=== PATIENT | female | born 1995 | race Caucasian/White ===

== ENCOUNTER 2017-04-27 18:46 | Inpatient (IN) | payer OTHER ==
[~2017-04-27] VITALS: Ht 161.9 cm; Wt 87.5 kg
[2017-04-27] MEDS ORDERED: Oxytocin 30 Units/500 mL LR 30 UNITS in IV Premix 1 EACH IV PRN (19:30)
[2017-04-27] MEDS ORDERED: fentaNYL-PF 50 mCg/mL 2 mL Inj IVPUSH PRN (19:30)
[2017-04-27] MEDS ORDERED: Oxytocin 10 Unit/mL Inj IM PRN (19:30)
[2017-04-27] MEDS ORDERED: Sodium Chloride LOK Flush 10 mL Syringe IVFLUSH PRN (19:30)
[2017-04-27] MEDS ORDERED: Methylergonovine 0.2 mg/mL Inj IM PRN (19:30)
[2017-04-27] MEDS ORDERED: Hemorrhage Kit, Post Partum XX ONE (19:30)
[2017-04-27] MEDS ORDERED: Carboprost 250 mCg/mL Inj IM PRN (19:30)
[2017-04-27 19:55] LABS: Mean Corpuscular Hemoglobin 29.2 pg (27.0-35.0); Mean Corpuscular Volume 89.6 fL (81-100)
[2017-04-27] MEDS: Lactated Ringer's 1,000 ML IV PRN (22:22)
[2017-04-28] MEDS ORDERED: fentaNYL 2 mCg/mL-Bupivicaine 0.125% 100 mL Premix EPIDURAL ONE (10:31)
[2017-04-28] MEDS: Lactated Ringer's 1,000 ML IV PRN (14:32)
[2017-04-28] MEDS ORDERED: Carboprost 250 mCg/mL Inj IM PRN (19:10)
[2017-04-28] MEDS ORDERED: Oxytocin 30 Units/500 mL LR 30 UNITS in IV Premix 1 EACH IV PRN (19:10)
[2017-04-28] MEDS ORDERED: Witch Hazel-Glycerin Pads TOPICAL PRN (19:10)
[2017-04-28] MEDS ORDERED: Benzocaine (Dermoplast) 20% 60 Gm Spray TOPICAL PRN (19:10)
[2017-04-28] MEDS ORDERED: LANOlin HPA 7 Gm Ointment TOPICAL PRN (19:10)
[2017-04-28] MEDS ORDERED: Oxytocin 10 Unit/mL Inj IM PRN (19:10)
[2017-04-28] MEDS ORDERED: Hemorrhage Kit, Post Partum XX ONE (19:10)
[2017-04-28] MEDS ORDERED: Methylergonovine 0.2 mg/mL Inj IM PRN (19:10)
[2017-04-28] MEDS ORDERED: oxyCODONE-Acetamin 5-325 mg Tablet PO PRN (19:10)
[2017-04-28] MEDS ORDERED: Lactated Ringer's 1,000 ML IV SCH (19:10)
--- NOTE | 2017-04-28 20:00 | PROCED ---
[address] [address] PROCEDURE NOTE PATIENT: AGUSTIN ADAM : 1995 MR#: [id number] ADMIT: 04/27/2017 JOB ID: [id number] DATE OF SERVICE: 04/28/2017 at 6:13 P.M () POSTOPERATIVE DIAGNOSIS(ES): PREOPERATIVE DIAGNOSIS(ES): SURGEON: DELIVERY NOTE: This 21-year-old, G1, P0 female at 39 weeks and 4 days estimated gestational age, delivered am infant girl, weighing 8 pounds, 13 ounces by vacuum-assisted delivery. The patient presented last night, after michael throughout the day. She was 3-4 cm at about 11 p.m. Her membranes were intact and she was michael every 1-3 minutes. She was significantly uncomfortable and she had a reactive and reassuring strip. She progressed on her own throughout the night to 5 cm by 3:00 a.m., and by 8:30 when I checked her, she was 6 cm. Her membranes were intact and so I ruptured them artificially and clear fluid resulted. The tracing appeared reactive and reassuring throughout. She continued to progress, and at around 9 cm, received an epidural. This was effective. She was complete and pushing by 2:45 p.m. She continued to push effectively and bring the baby's head down from -2 station to +2 station. She had been pushing for four hours by the time I reassessed her at the end of the day and she was running out of energy. Her tracing was still excellent. She had no fevers. In conjunction with the patient, a decision was made to apply the vacuum at a time when baby had reserve and the patient had reserve to help me with her pushing. The vacuum was applied, being careful to avoid the cervix as well as the fontanelle. The effect of this was immediate with the 1st pull bringing the head to +1 station and the second set of pulls bringing the baby to . I removed the vacuum at that point and let the patient deliver the head on her own. The head was noted to be right occiput anterior. The infant, at this point, was noted to have a tight fit with her shoulders. The usual maneuvers, including bringing her legs back, applying suprapubic pressure and cutting episiotomy were done. A total of a 2-minute shoulder dystocia was finally resolved when I reached in and pulled the posterior arm forward. I felt a pop. I assumed that this was a potential fracture of the clavicle. Evidence afterwards was not profound to this extent, but potential x-rays could delineate this. The was noted to have relatively less movement on the right after delivery, but of note is that the was immediately noted to have poor tone. For this reason, I cut the cord immediately and the inpatient Peds team which had been called during the shoulder dystocia took over care. Positive pressure ventilation resulted in an excellent cry and improved tone on this . Apgars initially were 7 and later were 9. The cord gases were sent for analysis. Cord blood was sent for analysis as well. The placenta delivered approximately 7 minutes later spontaneously and intact with a three-vessel cord. The patient had a normal amount of bleeding at 300 cc of blood loss. She was given Pitocin through the IV because this was already running. On the other hand, the IV was infiltrated and so an additional 10 IM was given. Her uterus was found to be firm. The repair was carried out after a third-degree laceration was noted. This started with four [id number] sutures into the rectal capsule using 2-0 Vicryl suture. Once good tone had been obtained, the second-degree repair was done in the usual fashion using 3-0 Vicryl. Ten cc of 1% lidocaine was used in addition to her epidural for anesthesia. The patient tolerated this well. Following the procedure, rectal tone was tested again and found to be intact. The plan was to continue pain meds and Colace in an effort to make the patient more comfortable and assist with stooling. The patient's uterus was found to be firm. Her cervix was intact, and the mucosa of her rectum was intact. There were no other complications of this procedure and counts were correct x2. The patient was in excellent condition following the procedure and in-and-out catheter procedure was done to help with immediate drainage given her epidural and the trauma of delivery.
[2017-04-29 06:56] LABS: Mean Corpuscular Hemoglobin 29.5 pg (27.0-35.0); Mean Corpuscular Volume 89.4 fL (81-100)
--- NOTE | 2017-04-29 09:04 | PCM.DC.OB ---
Obstetrical Discharge Summary Date of Service Apr 29, 2017 Date of hospital admission Apr 27, 2017 at 20:03 Date of Discharge: Apr 29, 2017 Providers Admitting Physician: Ernesto Lopez MD Primary Care Physician: Giselle Reid MD Attending Physician: Ernesto Lopez MD Problems: (1) Status post vacuum-assisted vaginal delivery Status: Acute ICD Code: Z87.42 (2) Third degree perineal laceration Status: Acute ICD Code: O70.20 Consultations None Invasive procedures NVD with 3rd degree repair Date of Procedure: Apr 28, 2017 Hospital Course: Patient went into labor and delivered by vacuum delivery. 3rd degree repair. Recovered well. Follow-up plan See me in 6 weeks Discharge Diet: No restrictions Discharge Activity-General: Try not to overdue, Balance rest and activity, Activity as pain allows, Activity as energy allows, No lifting >15 pounds for 2 weeks copies to: Ernesto Lopez MD, David B MD Apr 29, 2017 09:03
--- NOTE | 2017-04-29 09:06 | PCM.DIOB ---
Obstetrical Disch Instruction Date of Service: Apr 29, 2017 Dates of Hospitalization Date of Hospital Admission Apr 27, 2017 at 20:03 Providers Admitting Physician: Ernesto Lopez MD Primary Care Physician: Giselle Reid MD Attending Physician: Ernesto Lopez MD Discharge Diagnosis Problems: (1) Status post vacuum-assisted vaginal delivery Status: Acute ICD Code: Z87.42 (2) Third degree perineal laceration Status: Acute ICD Code: O70.20 Diet Discharge Diet: No restrictions Activity Discharge Activity-General: Pelvic Rest for 6 weeks, Balance rest and activity , Activity as pain allows, Activity as energy allows, No lifting >15 pounds for 2 weeks Dressing and Incisional Care Hygiene: May shower, Perineal care, Sitz bath, Dermoplast spray, Witch Yue pads Follow Up Plan Follow-up Provider (F9): Ernesto Lopez MD Follow-up appointment: Weeks (6) Call your provider for: Fever or Chills, Shortness of breath, Heavy vaginal bleeding, Excessive constipation, Vaginal discomfort, Red painful breasts Ernesto Lopez MD Apr 29, 2017 09:06
[2017-04-29] MEDS ORDERED: DOCU-41 PO (09:09)
[2017-04-29] MEDS ORDERED: IBUP800T28 PO (09:09)
[2017-04-29] MEDS ORDERED: HYDR-4003 PO (09:09)
[2017-04-29] MEDS: HYDROcodone-APAP 5-325 mg Tablet PO PRN ×2 (09:33→14:42)
[2017-04-29 15:56] VITALS: BP 111/70; PULSE 86; RESP 48
== END 2017-04-29 16:00 | disposition home or self-care (01) | DRG 775 ==
LOC: FBCO 18:46 → FBC 20:03
PROVIDERS: ADMIT Family Medicine; ATTEND Family Medicine
PROC: 10D07Z6 Extraction of Products of Conception, Vacuum, Via Natural or Artificial Opening (ICD-10-PCS; principal; 2017-04-28)
PROC: 0KQM0ZZ Repair Perineum Muscle, Open Approach (ICD-10-PCS; 2017-04-28)
PROC: 10907ZC Drainage of Amniotic Fluid, Therapeutic from Products of Conception, Via Natural or Artificial Opening (ICD-10-PCS; 2017-04-28)
PROC: 0W8NXZZ Division of Female Perineum, External Approach (ICD-10-PCS; 2017-04-28)
DX: O66.0 Obstructed labor due to shoulder dystocia (principal); O70.20 Third degree perineal laceration during delivery, unspecified; Z3A.39 39 weeks gestation of pregnancy; Z37.0 Single live birth